=== PATIENT | male | born 1950 | race Two or more races ===

== ENCOUNTER 2020-07-03 07:18 | Day surgery (SDC) | payer OTHER, MEDICARE ==
[2020-07-03] VITALS (10 sets, daily range): BP systolic 120–148; BP diastolic 39–82
[~2020-07-03] VITALS: Ht 188 cm; Wt 110.4 kg
[2020-07-03] MEDS ORDERED: normal saline 1,000 ML IV SCH (07:40)
[2020-07-03] MEDS ORDERED: diphenhydrAMINE 25mg capsule PO PRN (07:40)
[2020-07-03] MEDS ORDERED: METO-395 PO (07:51)
[2020-07-03] MEDS ORDERED: HYDR-3973 PO (07:51)
[2020-07-03] MEDS ORDERED: FLO0.4C PO (07:51)
[2020-07-03] MEDS ORDERED: FENO134C PO (07:51)
[2020-07-03] MEDS ORDERED: QUIN1TAB16 PO (07:51)
[2020-07-03] MEDS ORDERED: MULT-1085 PO (07:51)
[2020-07-03] MEDS ORDERED: ALLO300T8 PO (07:51)
[2020-07-03 08:27] LABS: BASOPHILS % (AUTO) 0.4 % (0-1); EOSINOPHILS # (AUTO) 0.2 X10'3 (0-0.9); HEMATOCRIT 44.6 % (42.0-52.0); HEMOGLOBIN 14.7 g/dl (14.0-17.9); LYMPHOCYTES # (AUTO) 1.8 X10'3 (1.1-4.8); LYMPHOCYTES % (AUTO) 34.8 % (21-51); MEAN CORPUSCULAR HEMOGLOBIN 29.4 PG (27.0-31.0); MEAN CORPUSCULAR VOLUME 89.1 FL (78-98); MEAN PLATELET VOLUME 7.3 FL (7.4-10.4); MONOCYTES # (AUTO) 0.4 X10'3 (0-0.9); MONOCYTES % (AUTO) 7.5 % (2-12); NEUTROPHILS # (AUTO) 2.7 X10'3 (1.8-7.7); NEUTROPHILS % (AUTO) 54.3 % (42-75); PLATELET COUNT 209 X10'3 (140-440); RED BLOOD COUNT 5.01 X10'6 (4.70-6.10); RED CELL DISTRIBUTION WIDTH 14.2 % (11.5-14.5); WHITE BLOOD COUNT 5.1 X10'3 (4.5-11.0)
[2020-07-03 08:31] LABS: ALBUMIN 3.5 G/DL (3.4-5.0); ANION GAP 8 (8-16); BLOOD UREA NITROGEN 20 MG/DL (7-18); BUN/CREATININE RATIO 17.9 (5.4-32.0); CHLORIDE 105 MMOL/L (99-107); CREATININE 1.12 MG/DL (0.60-1.10); GLUCOSE 126 MG/DL (70-104); MAGNESIUM 1.8 MG/DL (1.5-2.4); SODIUM 141 MMOL/L (135-145); TOTAL CARBON DIOXIDE 28.2 MMOL/L (24-32); eGFR 65 ML/MIN
[2020-07-03] MEDS ORDERED: iohexol 350MG/ML 100ml bottle IV ONE (08:57)
[2020-07-03] MEDS ORDERED: fentaNYL/PF 50MCG/1 ML 2ML syringe ONE (08:57)
[2020-07-03] MEDS ORDERED: heparin 1,000unit/ml 10ml vial 10 ML ONE (08:57)
[2020-07-03] MEDS ORDERED: LIDOcaine 1% (10mg/ml)w/preservative injection 20ml MDV ONE (08:57)
[2020-07-03] MEDS ORDERED: midazolam 1 mg/ML 2ml injection ONE ×2 (08:57→10:46)
[2020-07-03] MEDS ORDERED: IOHEXOL 350 MG/ML INFUS..BTL 75ML IV ONE (08:58)
[2020-07-03] MEDS ORDERED: normal saline 1000ml 1,000 ML IV SCH (11:35)
[2020-07-03] MEDS ORDERED: HYDROcodone/acetaminophen 5mg/325mg tablet PO PRN (11:35)
[2020-07-03] MEDS ORDERED: HYDROcodone/acetaminophen 10/325mg tab PO PRN (11:35)
[2020-07-03] MEDS ORDERED: OXAZEpam 15mg capsule PO PRN (11:35)
[2020-07-03] MEDS ORDERED: ondansetron/PF 4mg/2ml inj IV PRN (11:35)
== END 2020-07-03 15:00 | disposition home or self-care (01) ==
LOC: SSTAY O 07:18
PROVIDERS: ATTEND Internal Medicine Cardiovascular Disease
DX: R07.9 Chest pain, unspecified (principal); I25.10 Atherosclerotic heart disease of native coronary artery without angina pectoris; I47.1 Supraventricular tachycardia; I10 Essential (primary) hypertension; E78.5 Hyperlipidemia, unspecified; M10.9 Gout, unspecified; Z79.899 Other long term (current) drug therapy
CPT/HCPCS: 36415; 80048; 83735; 85025; 85610; 93005; 93458; 99152; 99153; C1760; C1769; C1894; J1644; J2001; J2250; J3010; J7030; Q0163; Q9967; A4620; A6258